=== PATIENT | male | born 1960 | race Caucasian/White ===

== ENCOUNTER 2016-11-01 01:50 | Emergency (ER) | payer SELFPAY ==
[2016-11-01 01:51] VITALS: BMI 25.7
[2016-11-01 02:05] VITALS: BP 104/60; PULSE 66; RESP 20; TEMP 97.7; O2SAT 99
[2016-11-01] MEDS ORDERED: Sodium Chloride 0.9% 1,000 ML IV STA (02:20)
[2016-11-01 02:43] LABS: BASO % 0.4 % (0.0-2.0); EOS # 0.2 K/uL (0.0-0.7); EOS % 2.6 % (0.0-4.0); HEMOGLOBIN 13.4 g/dL (12.0-18.0); LYMPH # 3.4 K/uL (1.0-4.3); LYMPH % 37.5 % (20.0-40.0); MEAN CORPUSCULAR HEMOGLOBIN 28.4 pg (27.0-31.0); MEAN CORPUSCULAR HGB CONC 32.7 g/dL (33.0-37.0); MEAN PLATELET VOLUME 8.6 fL (7.2-11.7); MONO # 0.6 K/uL (0.0-0.8); MONO % 6.8 % (0.0-10.0); NEUT # 4.8 K/uL (1.8-7.0); NEUT % 52.7 % (50.0-75.0); RBC 4.71 Mil/uL (4.40-5.90); RED CELL DISTRIBUTION WIDTH 13.3 % (11.5-14.5); WHITE BLOOD COUNT 9.1 K/uL (4.8-10.8)
[2016-11-01 02:45] LABS: ALBUMIN 3.8 g/dL (3.5-5.0)
[2016-11-01 02:48] LABS: GFR AFRICAN-AMERICAN > 60; GFR NON-AFRICAN AMERICAN > 60
[2016-11-01 02:49] LABS: ALB/GLOB RATIO 1.3 (1.0-2.1); ALT/SGPT 27 U/L (21-72); AST/SGOT 17 U/L (17-59); BLOOD UREA NITROGEN 23 mg/dL (9-20); CALCIUM 8.4 mg/dl (8.6-10.4); LIPASE 71 U/L (23-300)
--- NOTE | 2016-11-01 02:49 | C.PDOC ---
History Per: Patient History/Exam Limitations: no limitations Onset/Duration Of Symptoms: Hrs Current Symptoms Are (Timing): Still Present Quality Of Discomfort: Unable To Describe Associated Symptoms: denies: Fever, Chills, Nausea, Vomiting, Urinary Symptoms Alleviating Factors: None Recent travel outside of the [place]: No <Kd Driver - Last Filed: 11/01/16 02:49> <Charo Ramos - Last Filed: 11/01/16 03:50> Time Seen by Provider: 11/01/16 02:12 Chief Complaint (Nursing): Male Genitourinary Past Medical History Reviewed: Historical Data, Nursing Documentation, Vital Signs - Medical History PMH: Gastritis, Gastrointestinal Ulcer (7 yrs ago) Surgical History: Endoscopy Family History: States: Unknown Family Hx - Social History Hx Tobacco Use: No Hx Alcohol Use: No Hx Substance Use: No - Immunization History Hx Tetanus Toxoid Vaccination: No Hx Influenza Vaccination: No Hx Pneumococcal Vaccination: No <Kd Driver - Last Filed: 11/01/16 02:49> Review Of Systems Constitutional: Negative for: Fever, Chills Gastrointestinal: Negative for: Nausea, Vomiting Genitourinary: Positive for: Other (Inguinal pain). Negative for: Dysuria, Incontinence, Hematuria Musculoskeletal: Positive for: Back Pain <Kd Driver - Last Filed: 11/01/16 02:49> Physical Exam - Physical Exam Appears: Non-toxic Skin: Normal Color, Warm, Dry Head: Atraumatic, Normacephalic Oral Mucosa: Moist Chest: Symmetrical, No Tenderness Cardiovascular: Rhythm Regular, No Murmur Respiratory: Normal Breath Sounds, No Rales, No Rhonchi, No Wheezing Gastrointestinal/Abdominal: Soft, No Tenderness Back: CVA Tenderness (Right), No Vertebral Tenderness, No Paraspinal Tenderness Male Genital: Normal Inspection, No Inguinal Tenderness, No Inguinal Swelling Neurological/Psych: Oriented x3, Normal Speech, Normal Cognition <Kd Driver - Last Filed: 11/01/16 02:49> ED Course And Treatment - Laboratory Results Result Diagrams: 11/01/16 02:27 O2 Sat by Pulse Oximetry: 99 (Room air) Pulse Ox Interpretation: Normal Progress Note: CT abd/pel and urinalysis ordered. Toradol, zofran, and IV fluids administered. <Kd Driver - Last Filed: 11/01/16 02:49> - Laboratory Results Result Diagrams: 11/01/16 02:27 11/01/16 02:27 <Charo Ramos - Last Filed: 11/01/16 03:50> Disposition <Kd Driver - Last Filed: 11/01/16 02:49> <Charo Ramos - Last Filed: 11/01/16 03:50> - Disposition Referrals: Clinic,Med Surg [Primary Care Provider] - - Scribe Statement The provider has reviewed the documentation as recorded by the Scribe <Kd Driver - Last Filed: 11/01/16 02:49> <Charo Ramos - Last Filed: 11/01/16 03:50> - Scribe Statement Cayden Lucas All medical record entries made by the Scribe were at my direction and personally dictated by me. I have reviewed the chart and agree that the record accurately reflects my personal performance of the history, physical exam, medical decision making, and the department course for this patient. I have also personally directed, reviewed, and agree with the discharge instructions and disposition. (Kd Driver)
[2016-11-01] MEDS ORDERED: Sodium Chloride 0.9% 1,000 ML IV ONE (03:41)
--- NOTE | 2016-11-01 03:43 | CT ---
EXAM: CT Abdomen and Pelvis Without Intravenous Contrast CLINICAL HISTORY: 56 years old, male; Pain; Abdominal pain; Patient HX: 6; Additional info: Abd pain, b/l flank pain TECHNIQUE: Axial computed tomography images of the abdomen and pelvis without intravenous contrast. This CT exam was performed using one or more of the following dose reduction techniques: automated exposure control, adjustment of the mA and/or kV according to patient size, and/or use of iterative reconstruction technique. Coronal and sagittal reformatted images were created and reviewed. COMPARISON: No relevant prior studies available. FINDINGS: Lower thorax: Minimal atelectasis/scarring. Subcentimeter nodule vs focal scarring RIGHT middle lobe. RIGHT lower lobe calcified granuloma. ABDOMEN: Liver: Small hepatic calcification. Gallbladder and bile ducts: No calcified stones. No ductal dilation. Pancreas: Unremarkable. No ductal dilation. Spleen: No splenomegaly. Adrenals: No mass. Kidneys and ureters: Faint punctate calculus within RIGHT kidney. Minimal pelvocaliectasis of RIGHT kidney. Minimally dilated RIGHT ureter. 0.2 x 0.2 x 0.2 cm calculus within RIGHT distal ureter. Stomach and bowel: Few scattered diverticula within colon. No associated inflammatory stranding. Underdistention of LEFT colon. No definite mural thickening. No obstruction. Appendix: Normal caliber. No inflammation. PELVIS: Bladder: Unremarkable. No stones. Reproductive: Unremarkable as visualized. ABDOMEN and PELVIS: Intraperitoneal space: No significant fluid collection. No free air. Bones/joints: No acute fracture. Soft tissues: Unremarkable. Vasculature: Unremarkable. No aneurysm. Lymph nodes: No pathologically enlarged lymph nodes. IMPRESSION: 1. RIGHT distal ureteral calculus with minimal hydroureteronephrosis. 2. Incidental/non-acute findings are described above.
--- NOTE | 2016-11-01 03:55 | C.PDOC ---
History Of Present Illness 56 year old male who presents to the ER with a complaint of bilateral flank pain that is now radiating to the right inguinal area. Patient was seen by his PMD in September for urinary complaints and was given flomax daily for his symptoms.Pt reports 2 previous h/o of kidney stones. Denies fever, chills, nausea, vomiting, or urinary symptoms. Time Seen by Provider: 11/01/16 02:12 Chief Complaint (Nursing): Male Genitourinary History Per: Patient History/Exam Limitations: no limitations Onset/Duration Of Symptoms: Hrs Current Symptoms Are (Timing): Still Present Quality Of Discomfort: Unable To Describe Associated Symptoms: denies: Fever, Chills, Nausea, Vomiting, Urinary Symptoms Alleviating Factors: None Recent travel outside of the [place]: No Past Medical History Reviewed: Historical Data, Nursing Documentation, Vital Signs Vital Signs: Last Vital Signs Temp 97.7 F 11/01/16 01:57 Pulse 66 11/01/16 01:57 Resp 20 11/01/16 01:57 BP 104/60 11/01/16 01:57 Pulse Ox 99 11/01/16 04:43 - Medical History PMH: Gastritis, Gastrointestinal Ulcer (7 yrs ago) Surgical History: Endoscopy Family History: States: Unknown Family Hx - Social History Hx Tobacco Use: No Hx Alcohol Use: No Hx Substance Use: No - Immunization History Hx Tetanus Toxoid Vaccination: No Hx Influenza Vaccination: No Hx Pneumococcal Vaccination: No Review Of Systems Constitutional: Negative for: Fever, Chills Gastrointestinal: Negative for: Nausea, Vomiting Genitourinary: Positive for: Other (Inguinal pain). Negative for: Dysuria, Incontinence, Hematuria Musculoskeletal: Positive for: Back Pain Physical Exam - Physical Exam Appears: Non-toxic Skin: Normal Color, Warm, Dry Head: Atraumatic, Normacephalic Oral Mucosa: Moist Chest: Symmetrical, No Tenderness Cardiovascular: Rhythm Regular, No Murmur Respiratory: Normal Breath Sounds, No Rales, No Rhonchi, No Wheezing Gastrointestinal/Abdominal: Soft, No Tenderness Back: CVA Tenderness (Right), No Vertebral Tenderness Male Genital: Normal Inspection, No Inguinal Tenderness, No Inguinal Swelling Neurological/Psych: Oriented x3, Normal Speech, Normal Cognition ED Course And Treatment - Laboratory Results Result Diagrams: 11/01/16 02:27 11/01/16 02:27 O2 Sat by Pulse Oximetry: 99 (Room air) Pulse Ox Interpretation: Normal - CT Scan/US CT abd/pel Other Rad Studies (CT/US): Read By Radiologist, Radiology Report Reviewed CT/US Interpretation: EXAM: CT Abdomen and Pelvis Without Intravenous Contrast. CLINICAL HISTORY: 56 years old, male; Pain; Abdominal pain; Patient HX: 09-16-15; Additional info: Abd pain, b/l flank pain. TECHNIQUE: Axial computed tomography images of the abdomen and pelvis without intravenous contrast. This. CT exam was performed using one or more of the following dose reduction techniques: automated. exposure control, adjustment of the mA and/or kV according to patient size, and/or use of iterative. reconstruction technique. Coronal and sagittal reformatted images were created and reviewed. COMPARISON: No relevant prior studies available. FINDINGS: Lower thorax: Minimal atelectasis/scarring. Subcentimeter nodule vs focal scarring RIGHT middle. lobe. RIGHT lower lobe calcified granuloma. ABDOMEN: Liver: Small hepatic calcification. Gallbladder and bile ducts: No calcified stones. No ductal dilation. Pancreas: Unremarkable. No ductal dilation. Spleen: No splenomegaly. Adrenals: No mass. Kidneys and ureters: Faint punctate calculus within RIGHT kidney. Minimal pelvocaliectasis of. RIGHT kidney. Minimally dilated RIGHT ureter. 0.2 x 0.2 x 0.2 cm calculus within RIGHT distal. ureter. Stomach and bowel: Few scattered diverticula within colon. No associated inflammatory stranding. Underdistention of LEFT colon. No definite mural thickening. No obstruction. Appendix: Normal caliber. No inflammation. PELVIS : Bladder: Unremarkable. No stones. Reproductive: Unremarkable as visualized. ABDOMEN and PELVIS: Intraperitoneal space: No significant fluid collection. No free air. Bones/joints: No acute fracture. Soft tissues: Unremarkable. Vasculature: Unremarkable. No aneurysm. Lymph nodes: No pathologically enlarged lymph nodes. IMPRESSION: 1. RIGHT distal ureteral calculus with minimal hydroureteronephrosis. 2. Incidental/non-acute findings are described above. Progress Note: CT abd/pel and urinalysis ordered. Toradol, zofran, and IV fluids administered. Reevaluation Time: 04:33 Reassessment Condition: Improved (Pt sleeping in stretcher, reports improved pain. Abd soft NT, no CVA tenderness at this time. Pt tolerated PO fluids. Follwo up and return precautions were given and pt agrees with plan) Disposition - Disposition Referrals: Clinic,Med Surg [Primary Care Provider] - Disposition: HOME/ ROUTINE Disposition Time: 04:40 Condition: STABLE Additional Instructions: Increase PO fluids Take motrin as needed for pain Continue Flomax Follow up with urology Return to ER if worse Prescriptions: Ibuprofen [Motrin] 600 mg PO Q6H #20 tab Instructions: Renal Colic (ED) Print Language: GABONESE - Clinical Impression Clinical Impression: Renal colic on right side - Scribe Statement The provider has reviewed the documentation as recorded by the Scribmonique Lucas All medical record entries made by the [place] were at my direction and personally dictated by me. I have reviewed the chart and agree that the record accurately reflects my personal performance of the history, physical exam, medical decision making, and the department course for this patient. I have also personally directed, reviewed, and agree with the discharge instructions and disposition.
[2016-11-01 04:14] LABS: URINE BILIRUBIN NEGATIVE (NEGATIVE); URINE BLOOD 2+ (NEGATIVE); URINE CLARITY Clear (Clear); URINE COLOR Yellow (YELLOW); URINE GLUCOSE (UA) NORMAL (Normal); URINE LEUKOCYTE ESTERASE NEG Leu/uL (Negative); URINE NITRATE NEGATIVE (NEGATIVE); URINE PROTEIN NEGATIVE (NEGATIVE); URINE UROBILINOGEN NORMAL mg/dL (0.2-1.0)
== END 2016-11-01 05:20 | disposition home or self-care (01) ==
LOC: SUPCPDRO 01:50 → C.ER 01:50
DX: N13.2 Hydronephrosis with renal and ureteral calculous obstruction (principal)
CPT/HCPCS: 74176; 80053; 81001; 83690; 85025; 96361; 96374; 96375; 99285; J1885; J2405; J7040